=== PATIENT | male | born 1960 | race Two or more races ===

== ENCOUNTER → 2025-01-18 | Outpatient (CLI) | payer BC, MEDICAID, SELFPAY ==
--- NOTE | 2025-01-18 | XR_ITS ---
Examination: Lumbar spine 7 views TECHNIQUE: AP, lateral, standing lateral flexion, standing lateral extension, coned lateral lower lumbar spine, [place], [place] 7 views Date and time: January 10, 2025 1306 hours INDICATIONS: Lower back pain beginning 6 years ago. FINDINGS: Patient motion obscures detail Adequate alignment lumbar vertebral bodies on the lateral view Adequate range of motion between flexion and extension Prominent lumbar spondylosis No lumbar fracture. Moderate to advanced disc narrowing L5-S1 No spondylolisthesis IMPRESSION: Moderate to advanced degenerative disc disease L5-S1
== END | disposition home or self-care (01) ==
PROVIDERS: PCP Internal Medicine; Referring Provider Physician Assistant; Visit Provider Physician Assistant
DX: M51.370 Other intervertebral disc degeneration, lumbosacral region with discogenic back pain only (principal); G89.29 Other chronic pain
CPT/HCPCS: 72114

== ENCOUNTER 2025-04-17 10:00 | Outpatient (RCR) | payer BC, MEDICAID, SELFPAY ==
--- NOTE | 2025-04-10 12:46 | PTNOTE_ITS ---
PT OP Initial Eval Patient Information Outpatient Physical Therapy Treatment Date: 04/10/25 Visit Reasons: NECK PAIN Medical Diagnosis: Neck Pain Treatment Dx #1: Neck Pain Start of Care: 04/10/25 Date of Onset: 3-4 years ago Smoking Status Smoking Status: Never smoker Initial Assessment Subjective: Pt is a 64 y/o male reports of chronic neck pain (11/30) with numbness in his hands L>R. Pt recently completed MRI and xray but does not know the results. Based on past xray Pt has moderate stenosis at the C6-C7 level. Pt's surgeon does not recommend chiropractor. Pt has limitation with turning head, gripping, lifting, chores, self care, cooking, yard work, and work duties. Pt has completed ~ 6 sessions of physical therapy in [place] which helped. Objective: C/S AROM: all motions are 75% towards end range with pain in all plane BUE AROM: all motions are WFL BUE MMTs: grossly 3/5 Scapula MMTs: grossly 3/5 Palpation: TTP upper trape and levator scapulae Assessment: Pt demonstrate neck and BUE pain consistent with c/s stenosis leading to difficulty with ADLs. Pt will attempt physical therapy if pain persist Pt will be refer back to provider for further consultation. Short Term and [facility] Goals 1) Increase c/s AROM WNL in 6 wks to be able to perform chores 2) Decrease neck pain to 2/10 in 6 wks to be able to sit and stand more than 30 mins 3) Increase BUE MMTs grossly to 4-/5 in 6 wks to be able to perform lifting activities 4) Increase scapula MMTs grossly to 3+/5 in 6 wks to be able to perform recreational activities 5) Indep with HEP Treatment Plan 1) Manual Therapy 2) Therapeutic Activities 3) Therapeutic Exercises 4) Modalities (ice, heat, traction) Frequency and Duration: 2 x wk for 6 wks Certification Dates: 04/10/25 to 07/11/24 Procedure Charges OP PT Eval Mod Complex 30 minutes: Yes
--- NOTE | 2025-04-17 11:02 | PT.ODAYNRPT ---
PT Outpatient Daily Note OP Daily Note Outpatient Physical Therapy Treatment Date: 04/17/25 Visit Reasons: NECK PAIN Subjective: Pt's necl feels okay and still has pain down the arms. Objective: Please see flow chart for list of ther ex performed Assessment: improved c/s rotation AROM bilaterally post PT session Plan: Continue with PT Length of Time (minutes) of Treatment: 30 Minutes Procedure Charges Therapeutic Exercise 30 minutes: Yes
== END 2025-04-22 23:59 | disposition home or self-care (01) ==
LOC: CPTX 10:00
PROVIDERS: PCP Student in an Organized Health Care Education/Training Program; Referring Provider Student in an Organized Health Care Education/Training Program; Visit Provider Student in an Organized Health Care Education/Training Program
DX: M54.2 Cervicalgia (principal); R20.0 Anesthesia of skin; G89.29 Other chronic pain; M79.602 Pain in left arm; M79.601 Pain in right arm
CPT/HCPCS: 97110; 97162

== ENCOUNTER 2025-05-03 10:00 | Outpatient (RCR) | payer BC, MEDICAID, SELFPAY ==
--- NOTE | 2025-04-24 11:59 | PT.ODAYNRPT ---
PT Outpatient Daily Note OP Daily Note Outpatient Physical Therapy Treatment Date: 04/24/25 Visit Reasons: neck pain Subjective: No new complaints or concerns. Objective: Please see flow sheet for ther ex list. Assessment: Pt tolerated interventions well and can perform chin tucks with desired technique. Plan: Continue with POC. Length of Time (minutes) of Treatment: 30 Minutes Procedure Charges Therapeutic Exercise 30 minutes: Yes
--- NOTE | 2025-04-26 15:42 | PT.ODAYNRPT ---
PT Outpatient Daily Note OP Daily Note Outpatient Physical Therapy Treatment Date: 04/26/25 Visit Reasons: neck pain Subjective: Pt's neck is a little better. Less pain with turning the head side to side. Objective: Please see flow chart for list of ther ex performed Assessment: improved c/s rotation bilaterally with less pain reported. Decrease upper trape and levator scapulae tightness post stretching and heat Plan: Continue with PT Length of Time (minutes) of Treatment: 30 Minutes Procedure Charges Therapeutic Exercise 30 minutes: Yes
--- NOTE | 2025-05-01 10:55 | PT.ODAYNRPT ---
PT Outpatient Daily Note OP Daily Note Outpatient Physical Therapy Treatment Date: 05/01/25 Visit Reasons: neck pain Subjective: Pt notice improve with turning head lately. Minimal changes with numbness in the arms. Objective: Please see flow chart for list of ther ex performed Assessment: progressing with c/s rotation AROM bilaterally with less pain reported. Added c/s rotation to the contralateral side with nerve floss with good tolerance Plan: Continue with PT Length of Time (minutes) of Treatment: 30 Minutes Procedure Charges Therapeutic Exercise 30 minutes: Yes
--- NOTE | 2025-05-03 11:06 | PT.ODAYNRPT ---
PT Outpatient Daily Note OP Daily Note Outpatient Physical Therapy Treatment Date: 05/03/25 Visit Reasons: neck pain Subjective: Pt reports neck pain is still present but notices that his movement has improved. Objective: Please see flow sheet for ther ex list. Assessment: Slow progress with pain delaying intervention progression in clinic. Plan: Continue with poC. Length of Time (minutes) of Treatment: 30 Minutes Procedure Charges Therapeutic Exercise 30 minutes: Yes
--- NOTE | 2025-06-08 08:54 | PT.ODS1RPT ---
PT OP Progress/Discharge Note Date of Service: 06/08/25 Progress Note/DC Note Progress Note/Discharge Note: DC Note Patient Information Visit Reasons: neck pain Service Discharge Date: 06/08/25 Status Assessment: Pt has been seen for 6 visits (eval + 5 visits). Pt last treated on 05/03/25. Pt has not return to therapy and has been contact without success. At this time Pt will be d/c from care due to non-compliance per attendance policy. Pt did not meet set goals in therapy; thank you for your referrals
== END 2025-05-23 23:59 | disposition home or self-care (01) ==
LOC: CPTX 10:00
PROVIDERS: PCP Student in an Organized Health Care Education/Training Program; Referring Provider Student in an Organized Health Care Education/Training Program; Visit Provider Student in an Organized Health Care Education/Training Program
DX: M54.2 Cervicalgia (principal); G89.29 Other chronic pain
CPT/HCPCS: 97110